=== PATIENT | male | born 1975 | race Caucasian/White ===

== ENCOUNTER 2025-05-29 15:46 | Emergency (ER) | payer OTHER, SELFPAY ==
--- NOTE | 2025-05-29 | ECG_ITS ---
Test Reason : cp/syncope Blood Pressure : */* mmHG Vent. Rate : 72 BPM Atrial Rate : 72 BPM P-R Int : 156 ms QRS Dur : 92 ms QT Int : 378 ms P-R-T Axes : 61 40 31 degrees QTcB Int : 413 ms Normal sinus rhythm with sinus arrhythmia Normal ECG No previous ECGs available Referred By: Generic ED Physician Electronically Signed By: Timothy Vides
--- NOTE | 2025-05-29 15:49 | ED.GENADULT ---
HPI - General Adult General Chief complaint: Syncope Stated complaint: feels like passing out Time Seen by Provider: 05/29/25 19:26 Source: patient Mode of arrival: ambulatory Limitations: no limitations History of Present Illness ED Provider: Markus PETTY HPI narrative: The patient is a 50-year-old male presenting to the ED reporting last Monday he was seen at [facility] after experiencing lightheadedness with racing or palpitations and noted to have a heart rate of 180. The patient was discharged home after resolution of symptoms and is scheduled to follow up with Cardiology on 06/04 for a Holter monitor. The patient reports he has been hydrating well with no recurrence of symptoms until today when he was driving home from work. Patient reports he began feeling lightheaded described as off balance and near syncopal, but denies associated tinnitus, tunneling of vision, focal weakness, or overt headache. Patient does report having a slight pressure in the back of his head and tingling paresthesias of the right arm. The patient denies associated chest pain, racing heart palpitations, shortness of breath, fever, nausea, vomiting, abdominal pain or other somatic complaint. The patient reports he hydrated well today and spent most of his day in the air conditioning rather than working outside, was feeling well throughout the day until he was driving home. Patient reports he has been experiencing significantly increased stress, both regarding work, family, and his episode last Monday has made him extremely stressed about his health. The patient reports he has been sober from alcohol for 2 years, has been free from nicotine for the past 13 years. Patient reports history of cocaine use back in his early 20s, but not in the last 25-30 years. The patient denies other substance abuse. Patient reports symptoms have resolved since arriving in the ED. Related Data Allergies Allergy/AdvReac Type Severity Reaction Status Date / Time sulfamethoxazole (From Allergy Intermediate Rash Verified 05/29/25 15:58 Bactrim) trimethoprim (From Bactrim) Allergy Intermediate Rash Verified 05/29/25 15:58 Review of Systems Review of Systems: Yes all other systems are reviewed and are negative [facility] Social History Social History Smoked in Last 30 Days: No Use of substances other than those prescribed or required for medical reasons: No Advance Directives: No Advance Directives Information Provided: No Do you have a plan to hurt others: No Plan Physical Exam ED Vital Signs: Vital Signs - 24 hr 05/29/25 15:50 05/29/25 18:50 05/29/25 20:00 Temperature 97.1 F Pulse Rate 86 57 64 Respiratory Rate 18 16 13 Blood Pressure 142/93 H 154/94 H 146/94 H Pulse Oximetry 100 99 100 Oxygen Delivery Method Room Air Room Air Room Air 05/29/25 20:01 Temperature Pulse Rate Respiratory Rate Blood Pressure Pulse Oximetry 95 Oxygen Delivery Method Room Air BMI result Body Mass Index 28.1 CONSTITUTIONAL: The patient appears non-toxic, well nourished and in no acute distress. Vital signs as documented. HEAD: Atraumatic, normocephalic. EYES: EOMs grossly intact, pupils equal, conjunctiva clear, no exudate. ENT: Nares patent, no discharge. Airway patent, no audible stridor, visible mucosa is pink and moist without noted lesions. NECK: Trachea is midline, no obvious masses or gross abnormalities. CHEST: Symmetric movement, normal appearance. LUNGS: LS present and CTAB, no w/r/r. Non-labored work of breathing. CARDIAC: Regular Rhythm, S1/S2 appreciated, no murmurs, rubs or gallops. ABDOMEN: Abdomen soft and non-tender x4 quadrants, no palpable masses or organomegaly. : Deferred. EXTREMITIES: Normal tone, moves all extremities spontaneously without reported pain. No obvious acute injury or deformity noted. NEURO: Alert and oriented x3, CN II-XII intact. Cerebellar Functioning intact. Strength 5/5 x4. No obvious or motor deficits. Speech clear and appropriate. PSYCH: normal affect, appropriate eye contact, fluid speech, with appropriate response to questioning. No reported suicidality or homicidality. SKIN: Warm, dry, color appropriate, normal turgor. No rashes noted. Course Course Course Narrative: This is an RME: Additional HPI, ROS, PE not included below will be deferred to primary provider. RME assessment and note performed by: Erica Higginbotham PA-C This is a 50-year-old male who prsents to the ER with a complaint of near syncope. He was driving back from [place] and felt lightheaded, right arm was numb. Feeling pressure in the back of his head. Was seen at [facility] last week HR in the 180s, thought was SVT. Has appt with cardiology for halter monitor next week on 06/04. Plan: Labs, EKG, further ER Eval needed Medical Decision Making Medical Decision Making [facility] Narrative: 9:56 PM 05/29/2025 (Joey PETTY): The patient is a 50-year-old male presenting to the ED for evaluation of lightheadedness and dizziness which occurred while driving home from work earlier today. The patient denies true syncope, denies associated chest pain, palpitations, shortness of breath, cough, a viral URI symptoms, focal weakness, abdominal pain, vomiting, diarrhea, urinary symptoms, recent sick contacts, or recent trauma. The patient was evaluated 1 week ago at [facility] for similar presentation at which time he was noted to have a heart rate of in the 180s, which was accompanied by racing or palpitations which he did not experience today. The patient's lightheadedness improved following presentation to the ED. In the ED the patient's exam is markedly reassuring, no focal neurological deficit on exam, no headache, heart rate is normal rate and rhythm, no other acute findings. The patient's laboratory workup is markedly reassuring, negative troponin x2, no leukocytosis, anemia, electrolyte abnormalities or NEELIMA. Liver function tests are normal, viral swab is negative. The patient's EKG is nonischemic. The patient reports he has been experiencing increased anxiety recently, specifically regarding work but also regarding his health since the episode last week. The patient's workup in the ED today is reassuring, patient is safe for discharge, patient's symptoms may be related to stress however patient has been educated to return to the ED with any recurrence of symptoms, and has been advised of the importance of following up with cardiology for Holter monitoring as scheduled on 06/04. Admission/Observation Consideration of admission/observation: Escalation of care including admission/observation considered Lab Data [facility] Lab Attestation statement: I reviewed the patient's lab results. 05/29/25 16:21 05/29/25 16:21 Labs: Lab Results 05/29/25 05/29/25 Range/Units 16:21 19:54 WBC 6.4 (4.8-10.8) X10*3/uL RBC 5.50 (4.60-5.80) X10*6/uL Hgb 15.7 (14.0-18.0) g/dl Hct 46.1 (42.0-52.0) % MCV 83.8 (80.0-98.0) fL MCH 28.5 (27.0-33.0) pg MCHC 34.1 (31.0-36.0) g/dl RDW 12.4 (11.0-16.0) % Plt Count 243 (160-400) X10*3/uL MPV 12.3 (9.4-12.4) fL Immature Gran % (Auto) 0.2 (0.0-0.4) % Neut % (Auto) 66.2 (45-73) % Lymph % (Auto) 21.5 (20-40) % [place] % (Auto) 9.1 (2-11) % Eos % (Auto) 2.2 (0-4) % Baso % (Auto) 0.8 (0-2) % Lymph # (Auto) 1.4 (1.2-4.9) X10*3/uL [place] # (Auto) 0.6 (0.1-1.2) X10*3/uL Eos # (Auto) 0.1 (0.0-0.4) X10*3/uL Baso # (Auto) 0.1 (0.0-0.2) X10*3/uL Abs Immat Gran (auto) 0.01 (0.00-0.03) X10*3/uL Absolute Neuts (auto) 4.2 (2.0-8.3) x10*3/uL Absolute Nucleated RBC 0.000 (0.0-0.012) X10*3/uL Nucleated RBC % (auto) 0.0 (0.0-0.2) /100WBC Sodium 138 (135-145) mmol/L Potassium 3.7 (3.3-5.1) mmol/L Chloride 104 (96-108) mmol/L Carbon Dioxide 24 (22-29) mmol/L Anion Gap 14 (12-20) BUN 11 (9-16) mg/dL Creatinine 1.08 (0.5-1.4) mg/dL Estim Creat Clear Calc 99.1 Estimated GFR > 60 Random Glucose 106 (60-115) mg/dL Calcium 9.5 (8.4-10.2) mg/dL Magnesium 2.0 (1.6-2.6) mg/dL Total Bilirubin 0.9 (0.0-1.0) mg/dL Direct Bilirubin 0.3 (0.0-0.5) mg/dL AST 21 (5-37) U/L ALT 18 (0-40) U/L Alkaline Phosphatase 55 (39-117) U/L Troponin I High Sens < 2.7 < 2.7 (<3.5-35.0) ng/L B-Natriuretic Peptide 14 (<100) pg/mL Total Protein 7.5 (6.5-8.0) g/dL Albumin 4.7 (3.5-5.0) g/dL Influenza Type A (PCR) NEGATIVE (Negative) Influenza Type B (PCR) NEGATIVE (Negative) RSV RNA Qual (PCR) NEGATIVE (Negative) SARS-CoV-2 RNA (RT-PCR) NEGATIVE (Negative) Independent Interpretation I performed an independent interpretation of an: EKG (EKG shows sinus rhythm with a rate of 72, no evidence of acute ischemia, no ST elevation, no ectopy. QTC 413. ) Discharge Plan Discharge Clinical Impression: Episodic lightheadedness Patient Disposition: Home, Self-Care Instructions: Stress (ED), Generalized Anxiety Disorder (ED), Lightheadedness (ED), Anxiety (ED) Additional Instructions: Thank you for choosing [facility]'s Emergency Department for your care today. Thankfully your laboratory evaluation, EKG, and exam today are all very reassuring. There was no evidence of any acute cardiac, infectious, metabolic, neurologic, or other dangerous cause for your symptoms. Seeing as your symptoms have improved and your workup has been reassuring there is currently no indication for admission to the hospital or continued ED observation, and it is safe to discharge you home. Your symptoms may be related to increased stress, however we do not like to make this diagnosis without 1st rolling out all the possibilities. Please follow up with the your dominatrix at your appointment on the for a cardiac Holter monitor. Please read the attached information regarding ways to cope and deal with stress to reduce your body's expression of chronic stress (somatization). Please stay well hydrated and get plenty of rest. As we discussed please avoid regular Benadryl use for sleep. Please also follow up with your primary care physician for re-evaluation, additional management of your symptoms, and continued preventative care. You can also discuss potential treatment plans for stress/anxiety with the your primary care provider. If you do not have a primary care physician, please call the [facility] at [phone] to establish a new primary care physician. While waiting to establish your new primary care physician, you can call our Walk-in Care Clinic at [phone] for non-emergency needs. Please return to the emergency department if you develop a severe or sudden change in your symptoms, a fever over 100.4 that does not improve with Tylenol or Ibuprofen, recurrent vomiting, or any other new or worsening symptoms or concerns. Referrals: Physician,Unknown J [Primary Care Provider, Medical] Clinical Impression: Episodic lightheadedness Stand Alone Forms: Work/School Release Interventions: ED Discharge Assessment Last Done: 05/29/25 22:15 Print Language: Ethiopian
[2025-05-29 15:50] VITALS: BP 142/93; PULSE 86; RESP 18; TEMP 36.2; O2SAT 100; BMI 28.1
[2025-05-29 16:26] LABS: MANUAL DIFF FLAG NO
[2025-05-29 16:36] LABS: Hematocrit 46.1 % (42.0-52.0); Hemoglobin 15.7 g/dl (14.0-18.0); Imm Gran Abs Auto 0.01 X10*3/uL (0.00-0.03); Imm Gran Pct Auto 0.2 % (0.0-0.4); Lymphocytes Absolute Auto 1.4 X10*3/uL (1.2-4.9); Mean Corpuscular HGB Conc 34.1 g/dl (31.0-36.0); Mean Corpuscular Hemoglobin 28.5 pg (27.0-33.0); Mean Corpuscular Volume 83.8 fL (80.0-98.0); NRBC Abs Auto 0.000 X10*3/uL (0.0-0.012); NRBC Pct Auto 0.0 /100WBC (0.0-0.2); Platelet Count 243 X10*3/uL (160-400); Red Blood Count 5.50 X10*6/uL (4.60-5.80); White Blood Count 6.4 X10*3/uL (4.8-10.8)
[2025-05-29 16:43] LABS: Alanine Aminotransferase 18 U/L (0-40); Albumin Level 4.7 g/dL (3.5-5.0); Alkaline Phosphatase 55 U/L (39-117); Anion Gap 14 (12-20); Aspartate Amino Transferase 21 U/L (5-37); Blood Urea Nitrogen 11 mg/dL (9-16); Calcium 9.5 mg/dL (8.4-10.2); Carbon Dioxide 24 mmol/L (22-29); Chloride 104 mmol/L (96-108); Creatinine Clr Calc Pharmacy 99.1; Estimated Glomerular Filt Rate > 60; Magnesium 2.0 mg/dL (1.6-2.6); Potassium 3.7 mmol/L (3.3-5.1); Sodium 138 mmol/L (135-145); Total Protein 7.5 g/dL (6.5-8.0)
[2025-05-29 16:48] LABS: B Type Natriuretic Peptide 14 pg/mL (<100)
[2025-05-29 16:53] LABS: Troponin-I High Sensitivity < 2.7 ng/L (<3.5-35.0)
[2025-05-29 17:05] LABS: Resp Syncy Virus RNA Qual PCR NEGATIVE (Negative); SARS COV2 PCR INHOUSE NEGATIVE (Negative)
[2025-05-29 18:50] VITALS: BP 154/94; PULSE 57; RESP 16; O2SAT 99
[2025-05-29 19:01] VITALS: PULSE 61
--- OUTSIDE RECORDS SUMMARY | 2025-05-29 19:11 | XMS_ITS | Clinical Summary ---
Author Organization [facility] Address [address] [place] [phone] Phone Care Team Providers Care Preservationist Name Role Phone Farida You MD Primary Care Provider [phone] Allergies Active Allergy Reactions Criticality Noted Date Comments Sulfamethoxazole-Trimethoprim 2023 Medications No known medications Active Problems No known active problems Social History Tobacco Use Types Packs/Day Years Used Date Smoking Tobacco: Never Assessed Education Answer Date Recorded Are you interested in more education? Not on brenden e 07/17/2024 Are you concerned about learning? Not on file 07/17/2024 No 07/17/2024 No 07/17/2024 Digital Access Answer Date Recorded No 07/17/2024 No 07/17/2024 Reliable internet access at home? Not on file 07/17/2024 Device with a working camera? Not on file Sex and Gender Information Value Date Recorded Sex Assigned at Male 07/17/2024 2:27 PM EDT Legal Sex Male 2:18 PM EDT Gender Identity Male 07/17/2024 2:27 PM EDT Sexual Orientation Not on file Last Filed Vital Signs Vital Sign Reading Time Taken Comments Blood Pressure 131/82 07/24/2024 10:11 AM EDT Pulse 63 07/24/2024 10:11 AM EDT Temperature 36.8 C (98.3 F) 07/24/2024 10:11 AM EDT Respiratory Rate - - Oxygen Saturation 97% 07/24/2024 10:11 AM EDT Inhaled Oxygen Concentration - - Weight - - Height - - Body Mass Index - - Plan of Treatment Health Maintenance Due Date Last Done Comments LIPID PANEL 1974 DEPRESSION SCREENING 1986 SMOKING Hx and SMOKELESS TOBACCO SCREENING 1987 HEPATITIS C SCREENING 01/13/1992 HIV ONE-TIME SCREENING (18-6 5 YEARS) 01/13/1992 COLOGUARD 2019 COLONOSCOPY 2019 COLORECTAL CANCER SCREENING 2019 FIT TEST 2019 FOBT 2019 SIGMOIDOSCOPY 2019 VIRTUAL COLONOSCOPY 2019 PNEUMOCOCCAL VACCINES (50+ years) (1 of 1 - PCV) 01/13/2024 ZOSTER VACCINES (1 of 2) 01/13/2024 COVID-19 VACCINE (4 - 2023-2 5 season) 2024 09/15/2021, 02/20/2021, 01/29/2021 Adult Td,Tdap Booster 10/03/2027 10/03/2017 , 07/24/2007 HEPATITIS A VACCINES Aged Out 02/04/2016 No long er eligible based on patient's age to complete this topic HIB VACCINES Aged Out No longer eligi ble based on patient's age to complete this topic MENINGOCOCCAL VACCINES (ACWY) Aged Out No longer eligible based on patient's age to complete this topic MENINGOCOCCAL VACCINES (B) Aged Out N o longer eligible based on patient's age to complete this topic Medical Devices Not on file [place] [address] [place] [address] PPO [facility] HMO S Member Subscriber Plan / Payer (Ef fective 2023-Present) Name:Mayur Hart IV Relation to Subscriber:Self Name:Mayur Hart IV Payer ID:Not on file Type:PPO Address: [address] [facility] Member Subscriber Plan / Payer (Ef fective 2023-) Name:Mayur Hart IV Relation to Subscriber:Self Name:Mayur Hart IV Payer ID:Not on file Type:PPO Address: [address] [facility] Member Subscriber Plan / Payer (Ef fective 2023-Present) Name:Mayur Hart IV Relation to Subscriber:Self Name:Mayur Hart IV Payer ID:Not on file Type:O Address: [address] [facility] Member Subscriber Plan / Payer (Ef fective 2023-Present) Name:Mayur Hart IV Relation to Subscriber:Self Name:Mayur Hart IV Payer ID:Not on file Type:PPO Address: [address] [place], [place] [address] Member Subscriber Plan / Payer (Ef fective 2023-Present) Name:Mayur Hart IV Relation to Subscriber:Self Name:Mayur Hart IV Payer ID:Not on file Type:PPO Address: [address] [employer] Member Subscriber Plan / Payer (Ef fective 2024-Present) Name:Mayur Hart TORITO Relation to Subscriber:Employee Name:MAYUR HART IV Date of :1975 Address: [address] [place] [address] Payer ID:Not on file Group ID:Not on file Type:Indemnity Address: [address] [place] [id number] Care Teams Preservationist Relationship Specialty Start Date End Date Farida You MD [address] [place] [address] PCP - General Internal Medicine 07/17/24 Additional Source Comments The information contained in this document represents components of the legal health record. It is not the complete legal health record.[facility]
--- OUTSIDE RECORDS SUMMARY | 2025-05-29 19:11 | XMS_ITS | Clinical Summary ---
Author Organization [facility] [address] [place] [address] [place] [phone] Phone Care Team Providers Care [employer] Installer Name Role Phone Farida You MD Primary Care Provider [phone] Allergies Active Allergy Reactions Criticality Noted Date Comments Sulfamethoxazole-Trimethoprim Rash High 2014 Medications MULTIVITAMIN ORAL Take by mouth. Activ e diclofenac (Voltaren Arthritis Pain) 1 % topical gel Apply 2 g topically 4 (four) times a day. 150 g 1 03/20/20 25 Active sildenafiL (VIAGRA) 25 mg tablet TAKE 1 TABLET BY MOUTH NEEDED FOR ED 30-60 MINUTES PRIOR TO ANTICIPATED SEXUAL ACTIVITY 4 tablet 5 05/22/20 25 Active sildenafiL (VIAGRA) 25 mg tablet Take 1 Tablet by mouth as needed for Erectile Dysfunction. (30-60 MINUTES PRIOR TO ANTICIPATED SEXUAL ACTIVITY) 07/24/20 24 025 Discontinued Active Problems Problem Noted Date Diagnosed Date Obesity (BMI 30.0-34.9) 03/01/2019 Cold sore 11/20/2017 Hyperlipidemia 10/05/2016 Obstructive sleep apnea 2016 Overview (11/07/2024): UNTREATED (Oct 2023 & Aug 2020) Erectile dysfunction 07/24/2007 Encounters Date Type Department Care Team Description 05/22/2025 10:00 AM EDT Office Visit Adult Medicine [address] [place] [address] Farida You MD Palpitations (Primary Dx) 05/21/2025 Telephone Adult Medicine [address] [phone] Farida You MD Hospital Follow-up 03/20/2025 3:30 PM EDT Consult Orthopedic Surgery - [place] [address] [place] [address] Teressa Gonzalez PA Arthritis of right wrist (Primary Dx); Pain of right hand; Arthritis of carpometacarpal (CMC) joint of right thumb; Arthritis of iltqgumw-gktyyvmyp-jrsos zoid joint of right hand; Ulnar abutment syndrome of right wrist from Last 3 Months Immunizations Name Administration Dates Next Due Hepatitis A Adult (Havrix; V aqta) 19yo and older 02/04/2016 Hepatitis B (Arsxpxx-F-Wczuu , Recombivax HB-Adult) 19yo and older 11/01/2017,02/14/2012,08/12/2011,07/13,07/24/2007 Influenza Quadravalent, MDCK , 0.5ml, preservative free (Flucelvax) 6mo and older 07/20/2022,08/26/2020 Influenza Quadravalent, MDCK , 0.5ml, with preservative (Flucelvax) 6mo and older 08/30/2021 Influenza trivalent, 0.5mL, preservative free (Fluarix; FluLaval; Fluzone) ages 6mo and older (Afluria) 3 years and older 08/27/2019,09/06/2016,08/11/2015 Rabies Vaccine, For Intramus cular Injection Retired Code 06/03/2008 Tdap Tetanus diptheria acell ular pertussis (Boostrix; Adacel) 7yo and older 10/03/2017,07/24/2007 Zoster recombinant (Shingrix ) 19yo and older 12/06/2024,08/01/2024 Surgical History Surgery Date Site/Laterality Comments COLONOSCOPY 09/02/2011 normal COLONOSCOPY Normal screening examination. COLONOSCOPY 01/2023 repeat 5 years Medical History Medical History Date Comments Hyperlipidemia 10/05/2016 Cold sore 11/20/2017 Erectile dysfunction 07/24/2007 Obstructive sleep apnea 2016 UNTREATE D (Oct 2023 & Aug 2020) Family History Medical History Relation Name Comments Other: graves disease Daughter Hypertension Father diabetes, hypot hyroid, pancreatic cancer Other: unknown cancer Maternal Grandmother onset older than 60 yo Ovarian cancer Mother colon cancer mid 40s Hypertension Paternal Grandfather br ain aneurysm Heart attack Paternal Grandmother diabete s Other: anxiety Sister Relation Name Status Comments Daughter Alive Father Maternal Grandmother Mother Paternal Grandfather Paternal Grandmother Sister Social History Tobacco Use Types Packs/Day Years Used Date Smoking Tobacco: Former Cigarettes Q uit: 08/06/2012 Smokeless Tobacco: Never Tobacco Cessation:Counseling Given: Not Answered Alcohol Use Standard Drinks/Week Comments Yes 0 (1 standard drink = 0.6 oz pur e alcohol) Sex and Gender Information Value Date Recorded Sex Assigned at Not on file Legal Sex Male 4:14 AM EST Gender Identity Not on file Sexual Orientation Not on file Obstetrics History Last Filed Vital Signs Vital Sign Reading Time Taken Comments Blood Pressure 110/76 05/22/2025 10:06 AM EDT Pulse 69 05/22/2025 10:06 AM EDT Temperature 35.8 C (96.5 F) 05/22/2025 10:06 AM EDT Respiratory Rate 16 05/22/2025 10:06 AM EDT Oxygen Saturation 98% 05/22/2025 10:06 AM EDT Inhaled Oxygen Concentration - - Weight 97.6 kg (215 lb 1.6 oz) 05/22/2025 10:06 AM EDT Height 185.4 cm (6' 1 ) 05/22/2025 10:06 AM EDT Body Mass Index 28.38 05/22/2025 10:06 AM EDT Plan of Treatment Upcoming Encounters Date Type Department Care Team (Late st Contact Info) Description 06/04/2025 8:00 AM EDT Ancillary Procedure [facility] [address] [place] [phone] Health Maintenance Due Date Last Done Comments Lung Cancer Screening (Low Dose CT) 10/15/2022 Social Influencers of Health Screening 10/15/2022 Pneumococcal Vaccine: 50+ Years (1 of 1 - PCV) 01/13/2024 COVID-19 Vaccine (4 - 2023- season) 2024 09/15/2021, 02/20/2021, 01/29/2021 Depression Screening 11/06/2024 Influenza Vaccine (#1) 2025 , 08/30/2021, 08/26/2020, Additional history exists DTaP,Tdap,and Td Vaccines (3 - Td or Tdap) 10/03/2027 10/03/2017, 07/24/2007 Colorectal Cancer Screening: Colonoscopy 02/03/2028 02/02/2023 Cholesterol Screening (Lipid Panel) 03/29/2029 03/29/2024, 03/29/2024 Hepatitis A Vaccines Aged Out 10/12/2016, 02/04/20 16 No longer eligible based on patient's age to complete this topic Hepatitis B Vaccines Completed 11/01/2017, 02/14/2012, 08/12/2011, Additional history exists HIV Screening Completed 03/01/2019 Hepatitis C Screening Completed 03/01/2019 Zoster Vaccines Completed 12/06/2024, 08/01/2024 HIB Vaccines Aged Out No longer eligi ble based on patient's age to complete this topic HPV Vaccines Aged Out No longer eligi ble based on patient's age to complete this topic IPV Vaccines Aged Out No longer eligi ble based on patient's age to complete this topic MMR Vaccines Aged Out No longer eligi ble based on patient's age to complete this topic Meningococcal ACWY Vaccine Aged Out N o longer eligible based on patient's age to complete this topic Meningococcal B Vaccine Aged Out No l onger eligible based on patient's age to complete this topic RSV Immunization Patients Under 20 months Aged Out No longer eligible based on patient's age to complete this topic Varicella Vaccines Aged Out No longer eligible based on patient's age to complete this topic Procedures Procedure Name Priority Date/Time Associated Diagnosis Comments LIPID PANEL Routine 03/29/2024 COLONOSCOPY Routine 02/02/2023 HEPATITIS C SCREENING Routine 03/01/2019 HIV SCREENING Routine 03/01/2019 from Last 3 Months or Most Recently Relevant to Health Maintenance Results * (ABNORMAL) Lipid panel (03/29/2024) Pathologist [facility] LDL/HDL Ratio 3 0 - 4 Triglycerides 61 0 - 150 mg/dL Cholesterol 169 0 - 200 mg/dL HDL 51 >=40 mg/dL LDL Cholesterol 106(A) 0 - 100 mg/dL Blood Venous blood specimen / Unknown [facility] Provider LAB BLOOD ORDERABLES Maritza l Result * Colonoscopy (02/02/2023) Pathologist [facility] Colonoscopy no interpretation , abstracted Anatomical Region Laterality Modality Other [facility] Provider HEALTH MAINTENANCE Final Result * HIV Screening (03/01/2019) [facility] HIV Screening abstracted [facility] Provider HEALTH MAINTENANCE Final Result * Hepatitis C Screening (03/01/2019) Pathologist [facility] Hepatitis C Screening abstracted [facility] Provider HEALTH MAINTENANCE Final Result from Last 3 Months or Most Recently Relevant to Health Maintenance Insurance [facility] Care Teams [employer] Installer Relationship Specialty Start Date End Date Farida You MD [address] [place] [id number] [facility] - General 06/21/11
[2025-05-29 20:00] VITALS: BP 146/94; PULSE 64; RESP 13; O2SAT 100
[2025-05-29 20:01] VITALS: O2SAT 95
[2025-05-29 20:21] LABS: Troponin-I High Sensitivity < 2.7 ng/L (<3.5-35.0)
[2025-05-29 22:15] VITALS: BP 134/90; PULSE 59; RESP 16; TEMP 37; O2SAT 97
== END 2025-05-29 22:15 | disposition home or self-care (01) ==
PROVIDERS: Physician Assistant; Physician Assistant Medical; Emergency Provider Internal Medicine
DX: R42 Dizziness and giddiness (principal); F41.1 Generalized anxiety disorder
CPT/HCPCS: 36415; 80048; 80076; 83735; 83880; 84484; 85025; 87637; 93005; 99283; 99285

== ENCOUNTER → 2025-05-29 16:09 | Outpatient (BNV) | payer OTHER, SELFPAY | PROVIDERS: Emergency Provider Internal Medicine; Visit Provider Internal Medicine Cardiovascular Disease | DX: R07.9 Chest pain, unspecified (principal); R55 Syncope and collapse | CPT/HCPCS: 93010 ==